=== PATIENT | female | born 1945 | race African-American/Black ===

== ENCOUNTER → 2017-02-03 | Outpatient (RCR) | payer OTHER | END | disposition home or self-care (01) | LOC: PTY 16:00 | DX: R68.89 Other general symptoms and signs (principal); M25.561 Pain in right knee; Z96.642 Presence of left artificial hip joint; Z96.641 Presence of right artificial hip joint; Z91.81 History of falling; R26.81 Unsteadiness on feet; M19.90 Unspecified osteoarthritis, unspecified site; R53.1 Weakness ==

== ENCOUNTER 2017-03-13 15:50 | Outpatient (RCR) | payer OTHER | END 2017-04-05 | disposition home or self-care (01) | LOC: PTY 15:50 | DX: R68.89 Other general symptoms and signs (principal); M25.561 Pain in right knee ==